=== PATIENT | female | born 1950 | race Caucasian/White ===

== ENCOUNTER 2019-12-17 09:44 | Outpatient (CLI) | payer MEDICARE, SELFPAY ==
[2019-12-17 10:47] LABS: Alanine Aminotransferase 19 U/L (14-59); Albumin Level 3.9 g/dL (3.4-5.0); Alkaline Phosphatase 81 U/L (46-116); Anion Gap 12.8 mmol/L (7-16); Aspartate Amino Transferase 20 U/L (15-37); Bilirubin,Total 0.8 mg/dL (0.00-1.00); Blood Urea Nitrogen 13 mg/dL (7-18); Calcium 9.2 mg/dL (8.5-10.1); Carbon Dioxide 27 mmol/L (21-32); Chloride 95 mmol/L (98-108); Cholesterol 165 mg/dL (0-200); Estimated Glomerular Filt Rate 55; Glucose 96 mg/dL (70-99); HDL Direct 56 mg/dL (40-60); LDL Cholesterol Calculated 97 mg/dL (<130); Osmolality Calculated 270 mOsm/kg (285-295); Potassium 4.8 mmol/L (3.5-5.1); Sodium 130 mmol/L (136-145); Total Protein 7.5 g/dL (6.4-8.2); Triglycerides 58 mg/dL (0-150)
== END 2019-12-17 09:45 | disposition home or self-care (01) ==
LOC: CHSLAB 09:50
PROVIDERS: Visit Provider Internal Medicine Cardiovascular Disease
DX: E78.5 Hyperlipidemia, unspecified (principal)
CPT/HCPCS: 36415; 80053; 80061

== ENCOUNTER 2020-05-28 08:29 | Outpatient (CLI) | payer MEDICARE, SELFPAY ==
--- NOTE | ~2020-05-28 | MMUS_ITS ---
EXAMINATION: MM diagnostic cora BI w juanita, US breast LT complete HISTORY: Diffuse left breast inflammation and edema with warmth. TECHNIQUE: Additional 3-D tomosynthesis images of the breasts were performed and synthetic 2-D images were generated. CAD analysis was submitted and interpreted. High resolution left breast ultrasound w as performed. COMPARISON: None BREAST PARENCHYMAL COMPOSITION: The breasts are extremely dense, which lowers the sensitivity of mamm ography. FINDINGS: MAMMOGRAPHIC FINDINGS: There is no mammographic evidence for malignancy in the right breast. There are benign calcifications . There is a prominent lymph node in the left axilla with loss of normal fatty hilum measuring 1.6 cm . There is skin thickening and asymmetrically increased trabecular pattern compared with the right. ULTRASOUND: Right breast ultrasound: There is skin thickening noted over the nipple. At 1:00, 5 cm from the nipple, there is a 3 mm oval h ypoechoic mass without internal vascularity or significant posterior features. In the left axilla the re is a 2.4 cm enlarged lymph node with persistent fatty hilum. Also in the left axilla is an enlarge d lymph node measuring 1.5 cm with central hilum. At 10:00, 6 cm from the nipple, there is an oval hy poechoic mass measuring 5 mm with internal vascularity and no significant posterior features. IMPRESSION: 1. Constellation of findings is concerning for inflammatory breast carcinoma in the left breast with possible metastatic disease. 2. Consider surgical consultation with punch biopsy. Alternatively, ultrasound-guided biopsy of left axillary lymph nodes and masses at the 1 and 10:00 positions of the left breast may be performed. BI-RADS category 4, suspicious findings. Reviewed, dictated and finalized at location A. IMPRESSION: 1. Constellation of findings is concerning for inflammatory breast carcinoma in the left breast with possible metastatic disease. 2. Consider surgical consultation with punch biopsy. Alternatively, ultrasound- guided biopsy of left axillary lymph nodes and masses at the 1 and 10:00 positi ons of the left breast may be performed. BI-RADS category 4, suspicious findings.
== END 2020-05-28 08:30 | disposition home or self-care (01) ==
PROVIDERS: PCP Family Medicine; Visit Provider Family Medicine
DX: N61.0 Mastitis without abscess (principal)
CPT/HCPCS: 76641; 77062; 77066; G0279

== ENCOUNTER 2020-06-21 11:39 | Emergency (ER) | payer MEDICARE, SELFPAY ==
--- NOTE | ~2020-06-21 | XR_ITS ---
XR chest 2V 06/21/2020 12:08 Indication: Dyspnea. Left breast cancer. Procedure: PA and lateral views of the chest Comparison: 06/05/2018 Findings: Masslike density right upper lobe overlying the second rib anteriorly. There are linear inf iltrates bilaterally, likely atelectasis/scarring. No significant pleural effusion or pneumothorax. M oderate cardiomegaly. Impression: 1: Masslike density right upper lobe, concerning for malignancy. Further evaluation with CT chest rec ommended. 2: Linear bilateral infiltrates, most likely atelectasis/scarring, although developing pneumonia not excluded. Reviewed, dictated and finalized at location A. Impression: 1: Masslike density right upper lobe, concerning for malignancy. Further evalua tion with CT chest recommended. 2: Linear bilateral infiltrates, most likely atelectasis/scarring, although de veloping pneumonia not excluded.
[2020-06-21 11:40] VITALS: BP 118/71; PULSE 95; RESP 18; TEMP 35.9; O2SAT 98
--- NOTE | 2020-06-21 11:42 | ED.SOB ---
HPI - SOB/Dyspnea General Chief Complaint: Shortness of Breath/Dyspnea Stated Complaint: SOB Time Seen by Provider: 06/21/20 11:41 Source: patient, family and RN notes reviewed Mode of arrival: wheelchair Limitations: no limitations History of Present Illness HPI Narrative: Patient recently diagnosed with breast cancer. She is post to be getting has CT scan of her lungs to look for metastases. She began increasingly short of breath over last 3 weeks. This is well documented in previous visits at the doctor that she has try potting has dyspnea. She does have history of COPD and congestive heart failure. MD elicited complaint: shortness of breath Pertinent past history: COPD and congestive heart failure Onset (ago): week(s) (3) Timing: constant Severity: moderate Exacerbating factors: lying flat and exertion Relieving factors: nothing Known history of: COPD and congestive heart failure Associated symptoms: denies other symptoms Treatment prior to arrival: none Related Data Home oxygen amount: none Home Medications Medication Instructions Recorded Confirmed aspirin 81 mg tablet,delayed 81 mg PO DAILY 10/25/19 06/21/20 release Allergies Allergy/AdvReac Type Severity Reaction Status Date / Time pravastatin Allergy Mild myalgia Verified 05/16/20 13:52 iodine Allergy Unknown Hives Verified 05/16/20 13:52 shellfish derived Allergy Unknown Unknown Verified 05/16/20 13:52 Review of Systems Review of Systems: All systems reviewed & are unremarkable except as noted in HPI and below PMFSH Past Medical History Medical History (Updated 06/21/20 @ 15:00 by Max Tobin MD) Breast cancer CHF (congestive heart failure) COPD (chronic obstructive pulmonary disease) ALVARADO (generalized anxiety disorder) HTN (hypertension) Nicotine addiction Family History Family History Mother Family history of congestive heart failure Mother Family history of type 2 diabetes mellitus Social History Social History (Updated 06/21/20 @ 12:54 by Max Tobin MD) Smoking status: Former smoker Tobacco type: cigarettes Alcohol intake: former Substance use: never Exam Const: General: cooperative, well developed, alert, awake and anxious Nutritional Appearance: average body habitus and well nourished Orientation/consciousness: oriented to person, oriented to place and oriented to time Limitations: no limitations HENMT: Head: normal to inspection and normocephalic Ears: hearing grossly normal bilaterally and external ears normal Face and sinus: normal facial exam Eyes: General: appearance normal, both eyes and all related structures Periorbital: periorbital findings normal Eyelids: eyelids normal Conjunctivae: conjunctivae normal Sclera: sclerae normal Pupils: Equal, round and reactive pupils present Neck: Neck: normal visual inspection, full ROM, trachea midline and supple Resp: Effort & Inspection: normal respiratory effort, able to speak in complete sentences, labored, tripod positioning and symmetric chest movement Auscultation: clear to auscultation bilaterally Cardio: Rate: regular rate Rhythm: regular rhythm GI: Inspection: normal to inspection GI Palp: Yes Soft to palpation and No Tenderness to palpation present (GI) Auscultation: normal bowel sounds Back/Spine/Pelvis: Cervical Spine: cervical ROM normal Thoracic/Lumbar Spine: thoraco-lumbar ROM normal Skin: General skin exam: normal color, no rashes or lesions noted and turgor normal Neuro: General: oriented to person, oriented to place, oriented to time and no focal motor deficits Cognition (Neuro): normal cognition Speech: normal speech Motor exam (neuro): 5/5 motor strength present throughout Sensory Exam: normal sensation Extrem: General: full ROM and edema bilateral (2+) Psych: Appearance: grossly normal and well kempt Mental Status: mental status grossly normal Speech and movement: No
[2020-06-21 12:22] VITALS: PULSE 98
[2020-06-21 12:26] LABS: Basophils Absolute Auto 0.03 K/mm3 (0.00-0.10); Basophils Percent Auto 0.4 % (0.0-1.0); Eosinophils Absolute Auto 0.06 K/mm3 (0.02-0.50); Eosinophils Percent Auto 0.9 % (1.0-6.0); Hemoglobin 9.9 g/dL (11.7-13.8); Immature Granulocyte Absolute 0.04 K/mm3 (0.00-0.00); Immature Granulocyte Percent A 0.6 % (0.0-0.0); Lymphocytes Absolute Auto 0.59 K/mm3 (1.10-4.50); Lymphocytes Percent Auto 8.8 % (18.0-42.0); Mean Corpuscular HGB Conc 34.1 g/dL (32.0-36.0); Mean Corpuscular Hemoglobin 30.9 pg (27.0-31.0); Mean Corpuscular Volume 90.6 fL (78.0-102.0); Mean Platelet Volume 8.9 fl (9.2-11.8); Monocytes Absolute Auto 0.85 K/mm3 (0.10-0.90); Monocytes Percent Auto 12.6 % (2.0-11.0); Neutrophils Absolute Auto 5.2 K/mm3 (1.7-7.2); Neutrophils Percent Auto 76.7 % (50.0-70.0); Platelet Count Result 268 K/mm3 (150-420); Red Cell Distribution Width 13.2 % (11.6-14.4); White Blood Count 6.7 K/mm3 (4.8-10.8)
[2020-06-21 12:41] LABS: BNP 110 pg/mL (0-100)
[2020-06-21 12:49] LABS: Lactic Acid Reflex 2.6 mmol/L (0.4-2.0)
--- NOTE | 2020-06-21 12:51 | PC.NURSE ---
1140 upon arrival to er pt requested to stay sitting up in wheelchair. 1230 pt assisted to cot but declines to put feet up. wants to sit up. bedside table in front of pt to lean on as needed. pt thankful for all care given.
[2020-06-21 12:52] LABS: Alanine Aminotransferase 16 U/L (14-59); Albumin Level 3.4 g/dL (3.4-5.0); Alkaline Phosphatase 105 U/L (46-116); Anion Gap 14 mmol/L (8-16); Aspartate Amino Transferase 27 U/L (15-37); Bilirubin,Total 1.1 mg/dL (0.00-1.00); Blood Urea Nitrogen 50 mg/dL (7-18); Calcium 9.5 mg/dL (8.5-10.1); Carbon Dioxide 20 mmol/L (21-32); Chloride 91 mmol/L (98-108); Estimated CRCL calculation 20 ml/min; Estimated Glomerular Filt Rate 21; Glucose 116 mg/dL (70-99); Osmolality Calculated 274 mOsm/kg (285-295); Potassium 5.5 mmol/L (3.5-5.1); Sodium 125 mmol/L (136-145); Total Protein 8.2 g/dL (6.4-8.2)
[2020-06-21 12:55] LABS: CRP 9.2 mg/dL (0.0-0.9); Magnesium 2.3 mg/dL (1.8-2.4)
[2020-06-21] MEDS: HYDROCORTISONE SODIUM SUCCINATE 100 MG/2 ML VIAL 200 MG IV PUSH (13:06)
[2020-06-21] MEDS: ALBUTEROL SULFATE (*SP) INHALER 4 PUFF INHALATION (13:29)
[2020-06-21 13:30] LABS: D Dimer 8.94 mg/L (0.19-0.50)
[2020-06-21] MEDS: LACTATED RINGERS 1,000 ML 999 ML IV CONT (13:31)
[2020-06-21 13:32] VITALS: BP 121/64; PULSE 89; RESP 20; O2SAT 100
--- NOTE | 2020-06-21 13:38 | PC.NURSE ---
call to [facility] for transfer, spoke with elizabeth templesupervisor [facility]. awaiting return call from dr cortez.
[2020-06-21 14:15] LABS: Base Excess ABG -7.7 mmol/L (0-2); HCO3 ABG 15.7 mmol/L (23-29); Oxygen Saturation ABG 98.6 % (95-97); PCO2 ABG 25.4 mmHg (35-45); PO2 ABG 124.1 mmHg (75-85); pH ABG 7.41 (7.35-7.45)
[2020-06-21 14:16] LABS: Site Drawn LEFT RADIAL
[2020-06-21 14:17] LABS: Device NASAL CANNULA; Modified Allen's Test Pass
[2020-06-21] MEDS: ALBUTEROL SULFATE (*SP) INHALER 2 PUFF INHALATION (15:01)
[2020-06-21 15:11] VITALS: BP 98/52; PULSE 88; RESP 20; TEMP 37.1; O2SAT 98
--- NOTE | 2020-06-21 15:13 | PC.NURSE ---
[facility] unavalable for transfer. [facility] called awaiting arrival.
[2020-06-21 15:20] LABS: Reflex Lactic Acid Yes or No Add Lactic
--- NOTE | 2020-06-21 15:35 | PC.NURSE ---
[facility] here, pt loaded to cot. report to DJ. pt alert and feeling better with breathing.
== END 2020-06-21 15:36 | disposition short-term general hospital (02) ==
PROVIDERS: Emergency Provider Emergency Medicine; PCP Family Medicine
DX: R06.00 Dyspnea, unspecified (principal); R79.1 Abnormal coagulation profile
CPT/HCPCS: 36415; 36600; 71046; 80053; 82805; 83605; 83735; 83880; 85025; 85380; 86140; 87040; 96361; 96374; 99285; A9270; J1720; J7120

== ENCOUNTER 2020-06-21 16:18 | Inpatient (IN) | payer MEDICARE, SELFPAY ==
--- NOTE | ~2020-06-21 | XR_ITS ---
EXAMINATION: XR chest 1V portable EXAM DATE: 06/24/2020 02:22 INDICATION: Breast cancer. Right upper lobe mass. Desaturation. TECHNIQUE: Portable AP frontal chest x-ray was obtained. Comparison is made to prior examination from 06/23/2020. FINDINGS: There is a 3 cm right upper lobe masslike density. Small to moderate right pleural effusion with adjacent acute airspace disease could be atelectasis, cancer and/or pneumonia. There is cardiom egaly. No pneumothorax. There are no osseous abnormalities identified. IMPRESSION: 1. Small to moderate right pleural effusion with adjacent moderate nonspecific airspace disease. 2. Right upper lobe mass. 3. Cardiomegaly. Reviewed, dictated and finalized at location A.
--- NOTE | ~2020-06-21 | NM_ITS ---
EXAMINATION: NM pulmonary perfusion DATE: 06/23/2020 14:36 INDICATION: Shortness of breath. TECHNIQUE: 4.7 mCi Tc-99m MAA was administered intravenously for perfusion images. Scintigraphic casa ges of the chest were obtained. COMPARISON: Chest 2 views 06/23/2020 FINDINGS: Perfusion images show large defects in the basilar lower lobes. There are small and moderate sized de fects in the upper lobes and right middle lobe. ] IMPRESSION: 1. Nondiagnostic (intermediate probability for pulmonary embolism). Reviewed, dictated and finalized at location A.
--- NOTE | ~2020-06-21 | CT_ITS ---
EXAMINATION: CT chest abdomen pelvis wo con DATE: 06/23/2020 14:02 INDICATION: Right upper lobe radiographic density. Breast cancer. CHEST CT: There is a large pericardial effusion. There is thoracic aortic, great vessel and coronary artery extensive calcification. No thoracic aorti c aneurysm is evident. Emphysematous changes are noted. There is patchy infiltrate in consolidation in the right lung, prima rily involving the right lower lobe. There is mild dependent atelectasis in both upper lobes and the right lower lobe. There is an approximately 19 x 26 mm opacity in the posterior aspect of the right upper lobe with att enuation of approximately 20 Hounsfield units; its may be a pseudotumor or primary or metastatic pulm onary neoplasm. There is a 2.5 mm right apical pulmonary nodule. There are two approximately 9.5 mm masses in the superior segment of the left lower lobe. ABDOMEN/PELVIS CT: There is thickening, likely edema, of the gallbladder wall. No hepatic, splenic, pancreatic space-occ upying mass lesion or bile duct or pancreatic duct dilatation. Bilateral adrenal mass and/or hypertrophy. The kidneys appear unremarkable on this limited noncontrast examination with streak artifact. No urin charu tract calculus or hydroureteronephrosis is detected. There is a Bowman catheter within the evacuat ed urinary bladder. There is mild to moderate free fluid in the dependent pelvis. There is atherosclerotic calcification of the abdominal aorta and iliac arteries but no aneurysm. No intraperitoneal or retroperitoneal or pelvic mass lesion or adenopathy is evident. No bowel obstruction or intraperitoneal free air. There is edema of the chest and abdominal alicea, breasts. Diffuse osteopenia. No suspicious osteolytic or osteoblastic lesion is noted. IMPRESSION: Multiple lung masses, likely due to metastases Large pericardial effusion Right-sided patchy infiltrate/consolidation, involving primarily the right lower lobe Moderate right pleural effusion, minimal left pleural effusion Emphysema Reviewed, dictated and finalized at Location A. Reviewed, dictated and finalized at location B. IMPRESSION: Multiple lung masses, likely due to metastases Large pericardial effusion Right-sided patchy infiltrate/consolidation, involving primarily the right lowe r lobe Moderate right pleural effusion, minimal left pleural effusion Emphysema
--- NOTE | ~2020-06-21 | XR_ITS ---
EXAMINATION: XR chest 2V DATE: 06/23/2020 13:56 INDICATION: Shortness of breath. TECHNIQUE: Frontal and lateral views of the chest were obtained. COMPARISON: Chest 2 views 06/21/2020, chest CT 06/23/2020 FINDINGS: There are small pleural effusions, right worse than left. There are airspace opacities in r ight mid and lower lung zones. There is a nodule in right upper lobe. No pneumothorax. There is enlar gement of the cardiac silhouette. IMPRESSION: 1. Right upper lobe nodule, consistent with malignancy. 2. Small pleural effusions, right worse than left. 3. Airspace opacities in right mid and lower lung zones, consistent with pneumonia. 4. Enlargement of the cardiac silhouette secondary to pericardial effusion as seen by CT. Reviewed, dictated and finalized at location A. IMPRESSION: 1. Right upper lobe nodule, consistent with malignancy. 2. Small pleural effusions, right worse than left. 3. Airspace opacities in right mid and lower lung zones, consistent with pneumo leanne. 4. Enlargement of the cardiac silhouette secondary to pericardial effusion as s een by CT.
--- NOTE | ~2020-06-21 | US_ITS ---
EXAMINATION:US venous doppler LE BI INDICATION:Elevated d-dimer. Evaluate for deep venous thrombosis. TECHNIQUE: Multiple grayscale, color flow and Doppler images of the right and left lower extremity de ep venous systems were obtained and reviewed. COMPARISON:06/06/2018 FINDINGS: The common femoral, superficial femoral and popliteal veins demonstrate normal respiratory variation, augmentation and compressibility. Color flow is also seen within the posterior tibial, pe roneal, greater saphenous and profunda veins. IMPRESSION: 1: No lower extremity deep venous thrombosis. Reviewed, dictated and finalized at location A.
--- NOTE | 2020-06-21 16:00 | ADMGEN ---
This patient, Debby Lobo, was admitted to 2 Medical Room 259-01. Patient/family oriented to hospital policies and general routines including ID bracelet, bed and alarms, visiting hours, pain management, procedures, bathroom and other care routines, personal items, smoking policy, room service/diet, and visiting hours. Valuables list has been completed. Information on how to activate the Rapid Response Team has been discussed. Patient/Family are encouraged to report perceived risks to care and to ask questions if they do not understand what they are told or what they should do.
[2020-06-21 16:15] VITALS: BP 105/70; PULSE 91; RESP 15; TEMP 36.4; O2SAT 95; BMI 22.6
--- NOTE | 2020-06-21 18:55 | PM.IMHP ---
H&P: HPI History of Present Illness Date/Time: 06/21/20 18:55 Chief complaint: Dyspnea/Metastatic Breast Cancer Narrative: Debby Lobo is a 69 year old female Who has a history of COPD, nonischemic cardiomyopathy, and congestive heart failure. 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 The patient recently was diagnosed with breast cancer to the left breast. She sees Dr. Warner.. She told me that she has already had her 1st visit with him. The patient stated she ready has markings for her radiation. She said that her appetite has not been the best recently. She recently stop smoking and drinking alcohol because it just in taste very good to her. The patient stated that she was supposed to get a COVID test so that she could get a Port-A-Cath placed next week. She has been off of her aspirin for 1 week. The patient went to [facility] because she has been short of breath. It has been getting worse over the last 3 weeks. She takes her routine medications for her cardiomyopathy. She does not recall the last time she had an echo. The patient was placed on oxygen at [facility]. I spoke with Dr. Tobin at [facility]. I also spoke to my collaborative Dr. cortez concerning this case. The patient was not able to get a CT a pulmonary at [facility] because of her increasing creatinine and also she has an allergy to contrast medium. Her chest x-ray was read as masslike density right upper lobe concerning for malignancy. Further evaluation with CT chest recommended. Linear bilateral infiltrates most likely atelectasis scarring although developing pneumonia not excludable. Or creatinine was 2.32 and lactic 2.6. Potassium 5.5 and sodium 125. D-dimer 8.94 date of service 06/21/2020 Review of Systems Review of Systems: All systems reviewed & are unremarkable except as noted in HPI and below Constitutional: Constitutional: Reports as per HPI and Reports no additional constitutional complaints Eyes: Eyes: Reports as per HPI and Reports no additional eye complaints ENT: Reports system reviewed and no additional complaints, except as documented and Reports Normal hearing present Cardiovascular: Cardiovascular: Reports no additional cardiovascular complaints Respiratory: Respiratory: Reports no additional respiratory complaints and Reports no additional respiratory complaints Gastrointestinal: Gastrointestinal: Reports as per HPI and Reports no additional gastrointestinal complaints Musculoskeletal: Musculoskeletal: Reports no additional musculoskeletal complaints Integumentary/Breasts: Skin/Breast: Reports system reviewed and no additional complaints, except as docu and Reports as per HPI Neurologic: Reports system reviewed and no additional complaints, except as documented, Reports as per HPI and Reports Normal hearing present Psychiatric: Psychiatric: Reports no additional psychiatric complaints and Reports as per HPI Endocrine: Endocrine: Reports no additional endocrine complaints Hematologic/Lymphatic: Hematologic/Lymphatic: Reports no additional hematologic/lymphatic complaints Allergic/Immunologic: Allergic/Immunologic: Reports no additional allergic/immunologic complaints FOR[facility]LY [facility] Past Medical History Medical History (Updated 06/21/20 @ 19:22 by Rosalinda Singleton NP) Breast cancer left breast CHF (congestive heart failure) Chronic systolic heart failure COPD (chronic obstructive pulmonary disease) ALVARADO (generalized anxiety disorder) HTN (hypertension) Nicotine addiction Surgical History Surgical History (Updated 06/21/20 @ 19:04 by Rosalinda Singleton NP) H/O breast biopsy left breast S/P tonsillectomy and adenoidectomy Family History Family History (Updated 06/21/20 @ 19:05 by Rosalinda Singleton NP) Mother Congestive heart failure Diabetes mellitus Sibling Congestive heart failure Diabetes mellitus Father Diabetes mellitus Social History Social History (Updated
[2020-06-21 19:57] LABS: Basophils Percent Auto 0.3 % (0.2-1.2); Eosinophils Percent Auto 0.2 % (0-4.4); Hematocrit 29.3 % (37.0-47.0); Immature Granulocyte Absolute 0.07 K/mm3 (0.00-0.031); Immature Granulocyte Percent A 1.1 % (0-0.5); Lymphocytes Absolute Auto 0.34 K/mm3 (0.9-3.2); Lymphocytes Percent Auto 5.3 % (18.3-44.2); Mean Corpuscular HGB Conc 34.1 g/dl (32-36); Mean Corpuscular Hemoglobin 30.6 pg (26-34); Mean Corpuscular Volume 89.6 fl (80-100); Mean Platelet Volume 9.5 fl (7.4-10.4); Monocytes Absolute Auto 0.4 K/mm3 (0.1-0.6); Monocytes Percent Auto 6.7 % (2.6-8.5); Neutrophils Absolute Auto 5.6 K/mm3 (1.3-6.7); Neutrophils Percent Auto 86.4 % (45.5-73.1); Platelet Count Result 273 k/mm3 (150-375); Red Blood Count 3.27 M/mm3 (4.2-5.4); Red Cell Distribution Width 13.3 % (11.5-14.5); White Blood Count 6.4 K/mm3 (4.5-10.0)
[2020-06-21 20:00] VITALS: BP 102/65; PULSE 100; PULSE 94; RESP 20; TEMP 36.1; O2SAT 100
[2020-06-21 20:09] LABS: Magnesium 2.1 mg/dL (1.6-2.3)
[2020-06-21 20:44] VITALS: PULSE 95
[2020-06-21] MEDS: carvediloL 12.5 MG TABLET PO (20:44)
[2020-06-21] MEDS: CITALOPRAM HYDROBROMIDE 10 MG TABLET PO (20:45)
[2020-06-21] MEDS: diphenhydrAMINE HCl CAP 25 MG CAPSULE PO (20:45)
[2020-06-21] MEDS: ACETAMINOPHEN 500 MG TABLET PO (20:45)
[2020-06-21] MEDS: methylPREDNISolone SOD SUCC 125 MG VIAL 60 MG IV PUSH (21:15)
[2020-06-21 21:23] VITALS: PULSE 95; RESP 18; O2SAT 96
[2020-06-21] MEDS: ALBUTEROL SULFATE NEB 2.5 MG/0.5 ML INH INHALATION (21:23)
[2020-06-21 21:32] VITALS: PULSE 94; RESP 20
[2020-06-21] MEDS: ALPRAZolam (*CRX) 0.5 MG TABLET PO (22:18)
[2020-06-22] VITALS (15 sets, daily range): BP systolic 99–136; BP diastolic 59–82; PULSE 70–90; RESP 15–24; TEMP 35.6–36.4; O2SAT 91–98
[2020-06-22] MEDS: methylPREDNISolone SOD SUCC 125 MG VIAL 60 MG IV PUSH ×3 (05:15→21:26)
[2020-06-22 06:01] LABS: Basophils Percent Auto 0.2 % (0.2-1.2); Hematocrit 29.2 % (37.0-47.0); Hemoglobin 9.9 g/dL (12.0-15.0); Immature Granulocyte Absolute 0.05 K/mm3 (0.00-0.031); Immature Granulocyte Percent A 0.9 % (0-0.5); Lymphocytes Absolute Auto 0.51 K/mm3 (0.9-3.2); Lymphocytes Percent Auto 8.7 % (18.3-44.2); Mean Corpuscular HGB Conc 33.9 g/dl (32-36); Mean Corpuscular Hemoglobin 30.1 pg (26-34); Mean Corpuscular Volume 88.8 fl (80-100); Mean Platelet Volume 9.9 fl (7.4-10.4); Monocytes Absolute Auto 0.3 K/mm3 (0.1-0.6); Monocytes Percent Auto 5.5 % (2.6-8.5); Neutrophils Percent Auto 84.7 % (45.5-73.1); Platelet Count Result 258 k/mm3 (150-375); Red Blood Count 3.29 M/mm3 (4.2-5.4); Red Cell Distribution Width 13.2 % (11.5-14.5); White Blood Count 5.8 K/mm3 (4.5-10.0)
[2020-06-22 06:23] LABS: Alanine Aminotransferase 14 U/L (4-35); Albumin Level 3.5 g/dL (3.5-5.1); Alkaline Phosphatase 97 U/L (38-126); Anion Gap 10 mmol/L (8-16); Aspartate Amino Transferase 34 U/L (14-36); Bilirubin,Total 0.6 mg/dL (0.2-1.3); Blood Urea Nitrogen 66 mg/dL (7-17); CRP 6.6 mg/dL (<1.0); Calcium 9.4 mg/dL (8.4-10.2); Carbon Dioxide 21 mmol/L (22-30); Chloride 92 mmol/L (98-107); Estimated CRCL calculation 18 ml/min; Estimated Glomerular Filt Rate 18; Glucose 167 mg/dL (65-105); Magnesium 2.3 mg/dL (1.6-2.3); Potassium 5.6 mmol/L (3.4-5.0); Sodium 123 mmol/L (137-145)
--- NOTE | 2020-06-22 07:33 | ECG_ITS ---
Measurements Intervals [place] Rate: 83 P: 50 PA: 156 QRS: 19 QRSD: 89 T: 205 QT: 408 QTc: 480 Interpretive Statements SINUS RHYTHM VENTRICULAR PREMATURE COMPLEX LOW QRS VOLTAGE IN PRECORDIAL LEADS ST-T WAVE ABNORMALITY IN DIFFUSE LEADS- CONSIDER ISCHEMIA BASELINE WANDER- AVR, AVL, AVF, V1-V6 ABNORMAL ECG Electronically Signed On 06-22-2020 8:52:59 CDT by Harrison Becerril D.O.
--- NOTE | 2020-06-22 08:58 | PM.CNCAR ---
Assessment and Plan Assessment and plan (1) Acute renal failure: Code(s): N17.9 - Acute kidney failure, unspecified Status: Acute Assessment and Plan: Monitor renal function and electrolytes. May need Kayexalate for hyperkalemia. (2) Chronic systolic heart failure: Code(s): I50.22 - Chronic systolic (congestive) heart failure Status: Chronic Assessment and Plan: No acute CHF. She is actually appears on volume depleted side. Start IVF NS at 100 ml/hr x 1 liter to rehydrate and improve hyponatremia and hyperkalemia. Agree to holding Lisinopril due to acute renal failure and hyperkalemia. Agree with echo. Check troponin given abnormal EKG. (3) COPD (chronic obstructive pulmonary disease): Code(s): J44.9 - Chronic obstructive pulmonary disease, unspecified Status: Acute Assessment and Plan: Agree with nebs, steroids. (4) Dyslipidemia: Code(s): E78.5 - Hyperlipidemia, unspecified Status: Acute (5) CAD (coronary artery disease): Code(s): I25.10 - Atherosclerotic heart disease of [place] coronary artery without angina pectoris Status: Chronic (6) HTN (hypertension): Code(s): I10 - Essential (primary) hypertension Status: Chronic Assessment and Plan: Stable. (7) Acute dyspnea: Code(s): R06.00 - Dyspnea, unspecified Status: Inactive Assessment and Plan: Agree with assessing for thromboembolism such as V/Q scan and venous duplex, given very elevated D-Dimer and risk factors such as cancer and more sedentary. Agree needs Covid testing. History of Present Illness History of Present Illness Consult date/time: 06/22/20 08:58 Reasonf for consult: SOB. Patient is a 69 yr old woman who is my regular cardiology patient who presents to ED yesterday for sob. She has a history of NICM due to alcohol abuse, CAD, COPD, dyslipidemia (Pravastatin caused myalgia), hypertension, smoking. Reports that her sob got worse in last 1 week. She also had no appetite in last 1 week. Denies chest pain, edema, orthopnea, PND, palpitations. She was recently diagnosed with left breast cancer, followed by Dr. Warner. She was supposed to have a stevo cath placed this coming week. States she quit drinking alcohol about 2 weeks ago and quit smoking a little more than that. She reports breathing improving after neb treatment and steroids. Previous to this she stated she can walk a few blocks without any problems. CXR shows RUL mass, concerning for malignancy, and linear bilateral infiltrates likely atetactasis/scarring though pneumonia not excluded. EKG shows ST-T wave abnormality- consider ischemia. Cr 2.6/CrCl 18and was 1.01/Cr Cl 55 on 12/17/19. Potassium is 5.6 and sodium 125. D-Dimer 8.9. Lactic acid 2.6. BNP 110. TSH normal. Cardiovascular Procedures Supervisor [employer]:: Cath (Dr. Odell: OM1 with 50-60% stenosis; Diag 1 ostial 30% stenosis.) - 06/01/2018 Echo/MUGA:: Echo (EF 35%, mod global LV systolic dysfunction, mild LVH, mild LAE, mild-mod MR, trace TR.) - 08/23/2018 Echo (EF 18%, mild LVE, severe global systolic dysfunction, mild RVE and hypokinesis, severe MR, mod-severe TR, severe biatrial enlargement, RVSP 40-50 mmHg.) - 05/08/2018 Electrophysiology:: EKG (Sinus rhythm, delayed precordial R/S transition, ST-T wave abnormality- consider ant/inf ischemia.) - 06/06/2018 Reason For Visit: Dyspnea/Metastatic Breast Cancer Review of Systems Review of Systems: All systems reviewed & are unremarkable except as noted in HPI and below Constitutional: Constitutional: Reports as per HPI, Denies chills and Reports fatigue Cardiovascular: Cardiovascular: Reports as per HPI, Denies chest pain and Denies lightheadedness Respiratory: Respiratory: Reports as per HPI and Reports dyspnea Gastrointestinal: Gastrointestinal: Reports as per HPI and Denies abdominal pain Genitourinary: Genitourinary: Reports as per HPI and Denies dysuria Neurologic: Reports as per
[2020-06-22] MEDS: ALPRAZolam (*CRX) 0.5 MG TABLET PO ×2 (09:02→17:05)
[2020-06-22] MEDS: carvediloL 12.5 MG TABLET PO ×2 (09:03→20:16)
[2020-06-22] MEDS: SODIUM CHLORIDE 0.9% IV 1,000 ML 100 ML IV CONT ×2 (09:03→20:15)
[2020-06-22 10:09] LABS: Troponin I 0.075 ng/mL (0.000-0.034)
--- NOTE | 2020-06-22 10:22 | PC.NURSE ---
Per Pt's niece, the MD who was going to do her port was Dr. Flores, who works with Dr. Warner.
[2020-06-22] MEDS: ALBUTEROL SULFATE NEB 2.5 MG/0.5 ML INH INHALATION ×2 (13:14→20:16)
--- NOTE | 2020-06-22 14:16 | PM.IMPN ---
Progress Note: A&P Assessment and Plan (1) D-dimer, elevated: Code(s): R79.89 - Other specified abnormal findings of blood chemistry Status: Inactive Assessment and Plan: D-dimers 8.94. Wait for any anticoagulation until we get the V/Q scan. The D-dimer could be elevated due to the underlying malignancy The patient is scheduled to have a Port-A-Cath placed this next week. under DR messer. and DR Warner in [facility],to start chemotheraphy. (2) Acute dyspnea: Code(s): R06.00 - Dyspnea, unspecified Status: Inactive Assessment and Plan: Oxygen prn scheduled BT. Linear bilateral infiltrates most likely atelectasis scarring although developing pneumonia is not excluded. (3) Acute renal failure: Code(s): N17.9 - Acute kidney failure, unspecified Status: Acute Assessment and Plan: Her creatinine is 2.6 (4) COPD (chronic obstructive pulmonary disease): Code(s): J44.9 - Chronic obstructive pulmonary disease, unspecified Status: Acute Assessment and Plan: I did order Solu-Medrol and nebulizer treatments. (5) Breast cancer: Code(s): C50.919 - Malignant neoplasm of unspecified site of unspecified female breast Status: Chronic Assessment and Plan: Patient has seen Dr. Warner known pt to him (6) Dyslipidemia: Code(s): E78.5 - Hyperlipidemia, unspecified Status: Acute Assessment and Plan: No medicatons seen by Dr Becerril (7) ALVARADO (generalized anxiety disorder): Code(s): F41.1 - Generalized anxiety disorder Status: Chronic Assessment and Plan: Continue with her Xanax. (8) HTN (hypertension): Code(s): I10 - Essential (primary) hypertension Status: Chronic Assessment and Plan: Continue to Hold her lisinopril due to the acute renal failure. (9) Chronic systolic heart failure: Code(s): I50.22 - Chronic systolic (congestive) heart failure Status: Chronic Assessment and Plan: Hold lisinopril, seen by cardiology awaiting Echo Subjective Date/time seen: 06/22/20 14:16 Interval history: Debby Lobo is a 69 year old female Who has a history of COPD, nonischemic cardiomyopathy, and congestive heart failure and Metastatic Breast Cancer. Pt is still mildly SOB awaiting VQ scan, venous doppler of legs and ECHO. The patient was not able to get a CT a pulmonary at [facility] because of her creatinine level and allergy to contrast medium. Cxr here shows Masslike density right upper lobe, concerning for malignancy. Add Linear bilateral infiltrates, most likely atelectasis/scarring, possible Pneumonia. Vq ordered because of high ddimer. Review of Systems Review of Systems: All systems reviewed & are unremarkable except as noted in HPI and below Respiratory: Respiratory: Denies chest congestion, Denies excessive phlegm production, Reports dyspnea and Reports wheezing Exam Const: General: cooperative, healthy appearing and other (Elderly pleasant lady ); No in distress Nutritional Appearance: overweight Orientation/consciousness: oriented to person HENMT: Head: normal to inspection Resp: Auscultation: no rhonchi and wheezes (BL ) Cardio: Rate: regular rate Rhythm: regular rhythm GI: Inspection: normal to inspection GI Palp: No abdominal tenderness, No Guarding due to palpation present (GI) and No Hepatomegaly present Auscultation: normal bowel sounds Neuro: General: oriented to person Objective Data Vital Signs Vital Signs: Vital Signs - 24 hr 06/21/20 16:15 06/21/20 20:00 06/21/20 20:44 Temperature 36.4 C 36.1 C L Pulse Rate 91 100 95 Respiratory Rate 15 20 Blood Pressure 105/70 102/65 Pulse Oximetry 95 100 06/21/20 21:23 06/21/20 21:32 06/22/20 00:00 Temperature 36.4 C Pulse Rate 95 94 83 Respiratory Rate 18 20 18 Blood Pressure 136/82 Pulse Oximetry 96 96 06/22/20 04:00 06/22/20 06:00 06/22/20 08:00 Temp
[2020-06-22] MEDS: SODIUM POLYSTYRENE SULFONONATE 15 GM/60 ML BTL PO (15:17)
[2020-06-22] MEDS: CITALOPRAM HYDROBROMIDE 10 MG TABLET PO (17:02)
[2020-06-22 17:49] LABS: Anion Gap 13 mmol/L (8-16); Blood Urea Nitrogen 75 mg/dL (7-17); Calcium 9.2 mg/dL (8.4-10.2); Carbon Dioxide 21 mmol/L (22-30); Chloride 91 mmol/L (98-107); Estimated CRCL calculation 16 ml/min; Estimated Glomerular Filt Rate 16; Glucose 164 mg/dL (65-105); Potassium 5.5 mmol/L (3.4-5.0); Sodium 125 mmol/L (137-145)
--- NOTE | 2020-06-22 18:46 | PC.NURSE ---
Bladder scan showed 375 mls in bladder
--- NOTE | 2020-06-22 19:08 | WPDONCCN ---
Assessment and Plan Additional Plan Assessment: 1.Inflamm L breast ca 2.SOB --COPD --R/O PE --other 3.CKD 4.Cardiomyopathy--cardiology following 5.Abn CXR Plan: Non contrast CT chest and abdomen VQ scan--> anticoag if (+) Will follow HPI Data of Consult Date/Time: 06/22/20 19:08 Requesting Physician: Gavin Reese MD Primary Care Provider: Rick Washington MD Consult Narrative Narrative: Debby Lobo is a 69 year old female with new left breast cancer (triple negative--probable inflamatory). She was admitted with SOB. D-dimer up; Cr up so CT angio not possible; VQ scan pend. Hx of cardiomopathy thought to be due to ETOH. CXR shows a density in the R lung-- met vs primary vs other PENDING SALE TO [facility] Past Medical History Medical History (Updated 06/22/20 @ 00:00 by Kamran Ball) Breast cancer left breast CHF (congestive heart failure) Chronic systolic heart failure COPD (chronic obstructive pulmonary disease) ALVARADO (generalized anxiety disorder) HTN (hypertension) Nicotine addiction Surgical History Surgical History (Updated 06/21/20 @ 19:04 by Rosalinda Singleton NP) H/O breast biopsy left breast S/P tonsillectomy and adenoidectomy Family History Family History (Updated 06/21/20 @ 19:05 by Rosalinda Singleton NP) Mother Congestive heart failure Diabetes mellitus Sibling Congestive heart failure Diabetes mellitus Father Diabetes mellitus Social History Social History (Updated 06/21/20 @ 19:07 by Rosalinda Singleton NP) Social History: the patient stated that she quit for 3 months back in 2018 but then started back again. The patient stated that she has not smoked for the last week or drink any alcohol last week. The patient desires to be a full code. She nominated her sister's care to be her durable power senior trial attorney for healthcare. She has no children. She is retired from the [employer]. she is single and never been Smoking packs per day: 1 Smoking cigarettes per day: 20.0 Years smoked: 50 Smoking pack-years: 50.00 Smoking status: Former smoker Tobacco type: cigarettes Alcohol intake: current Drinks per week: 3 Substance use: never Substance use type: does not use Gender identity (if verbalized by the patient): Female Spiritual care concerns: No Meds Home Medications and Allergies Home Medications Medication Instructions Recorded Confirmed Type aspirin 81 mg tablet,delayed 81 mg PO DAILY 10/25/19 06/21/20 History release amlodipine 5 mg tablet 5 mg PO DAILY #30 tablet 12/17/19 06/21/20 Rx carvedilol 12.5 mg tablet 12.5 mg PO Q12H #60 tablet 12/17/19 06/21/20 Rx lisinopril 20 mg tablet 20 mg PO DAILY #30 tablet 02/04/20 06/21/20 Rx alprazolam 0.5 mg tablet 0.5 mg PO BID #20 tablet 06/04/20 06/21/20 Rx citalopram 10 mg tablet 10 mg PO DAILY #30 tablet 06/12/20 06/21/20 Rx acetaminophen [Tylenol] 325 mg PO Q6H PRN 06/21/20 06/21/20 History diphenhydramine-acetaminophen 1 tablet PO Q6H PRN 06/21/20 06/21/20 History [Tylenol PM Extra Strength] Allergies Allergy/AdvReac Type Severity Reaction Status Date / Time pravastatin Allergy Mild myalgia Verified 05/16/20 13:52 iodine Allergy Unknown Hives Verified 05/16/20 13:52 shellfish derived Allergy Unknown Unknown Verified 05/16/20 13:52 Vital Signs Vital Signs - 24 hr 06/21/20 20:00 06/21/20 20:44 06/21/20 21:23 Temperature 36.1 C L Pulse Rate 100 95 95 Respiratory Rate 20 18 Blood Pressure 102/65 Pulse Oximetry 100 96 06/21/20 21:32 06/22/20 00:00 06/22/20 04:00 Temperature 36.4 C Pulse Rate 94 83 75 Respiratory Rate 20 18 Blood Pressure 136/82 Pulse Oximetry 96 06/22/20 06:00 06/22/20 08:00 06/22/20 09:03 Temperature 35.7 C L Pulse Rate 81 90 82 Respiratory Rate 18 Blood Pressure 111/59 L Pulse Oximetry 92 06/22/20 10:15 06/22/20 12:00 06/22/20 13:17 Temperature 36.3 C L Pulse Rate 71 73 86 Respiratory Rate 15 24 H Blood P
[2020-06-22] MEDS: diphenhydrAMINE HCl CAP 25 MG CAPSULE PO (20:39)
[2020-06-22] MEDS: ACETAMINOPHEN 500 MG TABLET PO (20:40)
[2020-06-23] VITALS (17 sets, daily range): BP systolic 115–153; BP diastolic 58–86; PULSE 57–102; RESP 14–25; TEMP 36–36.8; O2SAT 90–100; BMI 22.6
--- NOTE | 2020-06-23 | ECHOL_ITS ---
Patient Info Name: Tony Lobo Age: 69 years : 1950 Gender: Female Ht: 66 in Wt: 140 lbs BSA: 1.72 m2 HR: 59 bpm BP: 127 / 73 mmHg Heart Rhythm: Sinus Rhythm Technical Quality: Good Exam Date: 06/23/2020 2:54 PM Exam Location: [facility] Patient Status: Inpatient Admit Date: 06/21/2020 Staff Ordering Physician: Kip Odell MD Power System Electrical Engineer: Angel Helton RDCS Attending Provider: Alisson Chawla PA-C Referring Physician: Cass ISRAEL; Exam Type: CA echo limited Study Info Indications I31.3 - Pericardial effusion (noninflammatory) Limited two-dimensional transthoracic echocardiogram is performed. Apical 4 chamber view and Apical 2 chamber view view(s) were obtained during the procedure. History/Risk Factors Limited for pericardial centesis. Summary 1. There is large circumferential pericardial effusion. 2. Pericardial effusion was tapped to trivial size with ongoing visualization in the apical projection. Left Ventricle Left ventricular chamber dimension is normal. Left ventricular systolic function is mildly reduced, estimated at 45-50%. Right Ventricle Right ventricular chamber dimension is normal. Left Atria Left atrial chamber dimension is mildly enlarged. Right Atria Right atrial chamber dimension is normal. Aortic Valve The aortic valve is not well visualized. Pulmonic Valve The pulmonic valve is not well visualized. Mitral Valve The mitral valve has normal leaflets. Tricuspid Valve The tricuspid valve leaflets are not well visualized. Pericardium/Pleural There is large circumferential pericardial effusion. Pericardial effusion was tapped to trivial size with ongoing visualization in the apical projection. Aorta The aortic root size at the sinus of Valsalva is not well visualized. Report Signatures
--- NOTE | 2020-06-23 | ECHO_ITS ---
Patient Info Name: Loly Lobo Age: 69 years : 1950 Gender: Female Ht: 66 in Wt: 140 lbs BSA: 1.72 m2 HR: 70 bpm BP: 115 / 58 mmHg Heart Rhythm: Sinus Rhythm Technical Quality: Good Exam Date: 06/23/2020 10:34 AM Exam Location: [facility] Patient Status: Inpatient Admit Date: 06/21/2020 Staff Ordering Physician: Rosalinda Singleton NP Clinical Research Associate: Angel Helton RDCS Attending Provider: Alisson Chawla PA-C Exam Type: CA echo doppler color flow Study Info Indications I42.9 - Cardiomyopathy, unspecified Complete two-dimensional, color flow and Doppler transthoracic echocardiogram is performed. History/Risk Factors NICM 2/2 EtOH abuse; large pericardial effusion, HTN, COPD, SOB. Summary 1. Complete two-dimensional, color flow and Doppler transthoracic echocardiogram is performed. 2. Left ventricular chamber dimension is normal. 3. Left ventricular systolic function is moderately reduced, estimated at 40-45%. 4. There is moderately increased left ventricular wall thickness. 5. The left ventricular diastolic function is grade I diastolic dysfunction. 6. E/e' 10 is mildly elevated. 7. Right ventricular systolic function is mild-moderately reduced with TAPSE 1.4 cm. 8. Left atrial chamber dimension is mildly enlarged. 9. There is mild mitral valve regurgitation. 10. Normal inferior vena cava with <50% collapse upon inspiration consistent with elevated right atrial pressure, 10 mmHg. 11. There is large circumferential pericardial effusion. Impending cardiac tamponade with evidence of diastolic right atrial collapse. No significant change in respiratory MV and TV inflow pattern. Left Ventricle E/e' 10 is mildly elevated. Left ventricular chamber dimension is normal. Left ventricular systolic function is moderately reduced, estimated at 40-45%. There is moderately increased left ventricular wall thickness. The left ventricular diastolic function is grade I diastolic dysfunction. Right Ventricle Right ventricular systolic function is mild-moderately reduced with TAPSE 1.4 cm. Right ventricular chamber dimension is normal. Left Atria Left atrial chamber dimension is mildly enlarged. Right Atria Right atrial chamber dimension is normal. Aortic Valve Cannot determine number of aortic valve leaflets. The aortic valve is not well visualized. There is no aortic valve stenosis. There is no aortic valve regurgitation. Pulmonic Valve There is no pulmonic regurgitation. Mitral Valve There is no mitral valve stenosis. There is mild mitral valve regurgitation. Tricuspid Valve There is no tricuspid valve regurgitation. Pericardium/Pleural There is large circumferential pericardial effusion. Impending cardiac tamponade with evidence of diastolic right atrial collapse. No significant change in respiratory MV and TV inflow pattern. Inferior Vena Cava Normal inferior vena cava with <50% collapse upon inspiration consistent with elevated right atrial pressure, 10 mmHg. Aorta The aortic root size at the sinus of Valsalva is normal. Left Ventricular Outflow Tract Name Value Normal LVOT 2D LVOT Diameter 1.8 cm LVOT Doppler
[2020-06-23] MEDS: ALBUTEROL SULFATE NEB 2.5 MG/0.5 ML INH INHALATION ×2 (01:50→20:46)
[2020-06-23] MEDS: methylPREDNISolone SOD SUCC 125 MG VIAL 60 MG IV PUSH ×2 (05:51→16:05)
[2020-06-23] MEDS: SODIUM CHLORIDE 0.9% IV 1,000 ML 100 ML IV CONT (06:20)
[2020-06-23 06:39] LABS: Troponin I 0.085 ng/mL (0.000-0.034)
[2020-06-23 07:23] LABS: Anion Gap 13 mmol/L (8-16); Blood Urea Nitrogen 77 mg/dL (7-17); Calcium 8.5 mg/dL (8.4-10.2); Carbon Dioxide 18 mmol/L (22-30); Chloride 94 mmol/L (98-107); Estimated CRCL calculation 18 ml/min; Estimated Glomerular Filt Rate 18; Glucose 165 mg/dL (65-105); Potassium 5.2 mmol/L (3.4-5.0); Sodium 125 mmol/L (137-145)
--- NOTE | 2020-06-23 08:00 | ECG_ITS ---
Measurements Intervals [place] Rate: 66 P: 16 CA: 165 QRS: 21 QRSD: 90 T: 199 QT: 495 QTc: 519 Interpretive Statements SINUS RHYTHM VENTRICULAR PREMATURE COMPLEX INCOMPLETE RIGHT BUNDLE BRANCH BLOCK T WAVE ABNORMALITY IN DIFFUSE LEADS- CONSIDER ISCHEMIA ABNORMAL ECG Electronically Signed On 06-23-2020 12:59:06 CDT by Harrison Becerril D.O.
--- NOTE | 2020-06-23 08:10 | PM.PNCARD ---
Progress Note: A&P Assessment and Plan (1) Acute renal failure: Code(s): N17.9 - Acute kidney failure, unspecified Status: Acute Assessment and Plan: Monitor renal function and electrolytes. May need Kayexalate for hyperkalemia. (2) Chronic systolic heart failure: Code(s): I50.22 - Chronic systolic (congestive) heart failure Status: Chronic Assessment and Plan: No acute CHF. She is actually appears on volume depleted side. On IVF NS at 100 ml/hr to rehydrate and improve hyponatremia and hyperkalemia. Be cautious for volume overload given history of cardiomyopathy. Agree to holding Lisinopril due to acute renal failure and hyperkalemia. Obtain CXR. Agree with echo. Anormal EKG. Slightly elevated troponins could be due to type II infarct from worsening kidney function, COPD exacerbation. (3) COPD (chronic obstructive pulmonary disease): Code(s): J44.9 - Chronic obstructive pulmonary disease, unspecified Status: Acute Assessment and Plan: Currently wheezing. Agree with nebs, steroids. (4) Dyslipidemia: Code(s): E78.5 - Hyperlipidemia, unspecified Status: Acute Assessment and Plan: Not sure how Pravastatin got discontinued from 6 months ago. Will resume Pravastatin 10 mg daily. (5) CAD (coronary artery disease): Code(s): I25.10 - Atherosclerotic heart disease of [place] coronary artery without angina pectoris Status: Chronic (6) HTN (hypertension): Code(s): I10 - Essential (primary) hypertension Status: Chronic Assessment and Plan: Stable. (7) Acute dyspnea: Code(s): R06.00 - Dyspnea, unspecified Status: Inactive Assessment and Plan: Agree with assessing for thromboembolism such as V/Q scan. Venous duplex is negative for DVT. Very elevated D-Dimer and risk factors such as cancer and more sedentary for thromboembolism. Agree needs Covid testing. Subjective Date/time seen: 06/23/20 08:10 Denies chest pain. Reports sob. Exam Const: General: no acute distress and uncomfortable Other: Tachypneic Neck: Neck: no JVD Carotids: no bruits Resp: Auscultation: no crackles, no rales, no rhonchi, wheezes and diminished lung sounds Cardio: Rate: regular rate Rhythm: regular rhythm Heart sounds: no murmurs GI: Inspection: non-distended Neuro: Speech: normal speech Extrem: Right lower extremity: no edema Left lower extremity: no edema Objective Data Vital Signs Vital Signs: Vital Signs - 24 hr 06/22/20 09:03 06/22/20 10:15 06/22/20 12:00 Temperature 97.3 F L Pulse Rate 82 71 73 Respiratory Rate 15 Blood Pressure 99/68 L Pulse Oximetry 95 06/22/20 13:17 06/22/20 13:27 06/22/20 14:10 Temperature 97.2 F L Pulse Rate 86 76 71 Respiratory Rate 24 H 24 H 16 Blood Pressure 104/67 Pulse Oximetry 91 06/22/20 16:00 06/22/20 20:00 06/22/20 20:16 Temperature 96.0 F L Pulse Rate 70 72 77 Respiratory Rate 20 20 Blood Pressure 112/70 Pulse Oximetry 95 93 06/22/20 20:22 06/22/20 21:31 06/23/20 00:00 Temperature 96.7 F L 97.0 F L Pulse Rate 75 73 64 Respiratory Rate 20 20 16 Blood Pressure 133/70 141/81 H Pulse Oximetry 98 91 06/23/20 01:50 06/23/20 01:55 06/23/20 04:00 Temperature Pulse Rate 68 70 79 Respiratory Rate 20 20 Blood Pressure Pulse Oximetry 06/23/20 05:00 06/23/20 06:32 Temperature 96.8 F L Pulse Rate 81 Respiratory Rate 20 Blood Pressure 153/86 H Pulse Oximetry 92 91 Intake/Output Intake/Output: Intake & Output 06/20/20 06/21/20 06/22/20 06/23/20 23:59 23:59 23:59 23:59 Intake Total 340 1979 1100 Output Total 0 400 Balance 340 1979 700 Meds/Results Medications: Active Medications Generic Name Dose Route Start Last Admin Trade Name Freq PRN Reason Stop Dose Admin Acetaminophen 325 mg 06/21/20 18:50 Tylenol Tablet PO Q6H PRN Pain pain rated 1-3 Acetaminophen 500 m
[2020-06-23] MEDS: carvediloL 12.5 MG TABLET PO ×2 (08:23→20:32)
[2020-06-23] MEDS: ALPRAZolam (*CRX) 0.5 MG TABLET PO (08:23)
[2020-06-23] MEDS: ASPIRIN 81 MG ENTERIC TABLET PO (08:23)
[2020-06-23] MEDS: amLODIPine BESYLATE 5 MG TABLET PO (10:23)
--- NOTE | 2020-06-23 10:39 | PM.IMPN ---
Progress Note: A&P Assessment and Plan (1) Pericardial effusion: Code(s): I31.3 - Pericardial effusion (noninflammatory) Status: Acute Assessment and Plan: Patient with newly diagnosed breast cancer presents with worsening shortness of breath. Echocardiogram today reveals moderately reduced LV systolic function EF 40-45% with large circumferential pericardial effusion impending cardiac tamponade with evidence of diastolic right atrial collapse. She is an established patient of Dr. Jone pisano input. She has additionally been seen by Dr. Odell today who performed pericardiocentesis this afternoon, yielding 500 mL of frankly bloody fluid concerning for malignancy. I have called down to lab this evening and they still have the fluid, we will test it for cell count, Gm stain/culture, cytology. Suspect malignant. (2) Acute respiratory failure with hypoxia: Code(s): J96.01 - Acute respiratory failure with hypoxia Status: Acute Assessment and Plan: Likely multifactorial; possible contributing factors include new pulmonary nodules concerning for metastasis, COPD, large pericardial effusion noted above. She is tolerating 3 L O2 nasal cannula this afternoon. (3) Breast cancer: Qualifiers: Breast location: unspecified site of breast Estrogen receptor status: unspecified Patient sex: female Laterality: unspecified laterality Qualified Code(s): C50.919 - Malignant neoplasm of unspecified site of unspecified female breast Code(s): C50.919 - Malignant neoplasm of unspecified site of unspecified female breast Status: Chronic Assessment and Plan: Newly diagnosed left breast cancer, likely inflammatory. Further recommendations per Dr. Alana pisano input. Per the records available, she was going to get a Port-A-Cath placed soon. (4) Pulmonary nodules: Code(s): R91.8 - Other nonspecific abnormal finding of lung field Status: Acute Assessment and Plan: Shows right upper lobe and left lower lobe pulmonary nodules concerning for metastasis. (5) Acute renal failure: Qualifiers: Acute renal failure type: unspecified Qualified Code(s): N17.9 - Acute kidney failure, unspecified Code(s): N17.9 - Acute kidney failure, unspecified Status: Acute Assessment and Plan: Cr 2.6 today, was previously normal back in November 2019. She has not been eating or drinking well secondary to poor appetite, suspect may be contributing to acute renal failure. Hold lisinopril. Continue gentle IV hydration for now monitor fluid status closely. Monitor renal function and urine output. (6) COPD (chronic obstructive pulmonary disease): Qualifiers: COPD type: unspecified COPD Qualified Code(s): J44.9 - Chronic obstructive pulmonary disease, unspecified Code(s): J44.9 - Chronic obstructive pulmonary disease, unspecified Status: Acute Assessment and Plan: She has been treated with IV Solu-Medrol, will wean today. Continue albuterol nebs and supplemental O2. Encourage incentive spirometer. (7) HTN (hypertension): Qualifiers: Hypertension type: essential hypertension Qualified Code(s): I10 - Essential (primary) hypertension Code(s): I10 - Essential (primary) hypertension Status: Chronic Assessment and Plan: BP stable maintained on her home carvedilol. Lisinopril is held due to acute renal failure. Monitor BP and adjust treatment as needed. (8) Chronic systolic heart failure: Code(s): I50.22 - Chronic systolic (congestive) heart failure Status: Chronic Assessment and P
--- NOTE | 2020-06-23 11:48 | PCRCNOTE ---
PAST RESPIRATORY TIME WINDOW TO RECEIVE TREATMENT
--- NOTE | 2020-06-23 13:49 | PM.CNCAR ---
Assessment and Plan Additional Plan 69-year-old lady with shortness of breath and unfortunate recent diagnosis of metastatic breast cancer. She likely has pericardial involvement and echocardiographic and physical exam stigmata of hemodynamic significance. We will arrange for percutaneous pericardial drainage of this fluid this afternoon. Fluid will be sent for routine lab data, cultures and cytology. Kip Odell MD [facility] History of Present Illness History of Present Illness Consult date/time: date of service:06/23/20 13:49 Reason For Visit: Dyspnea/Metastatic Breast Cancer Narrative: This is a 69-year-old woman who I am asked to see this afternoon at the request of Dr. Becerril to perform a pericardiocentesis of a pericardial effusion that is suspected to be related to metastatic breast cancer. The patient apparently was found to have a breast malignancy recently and is seeing 1 of the local oncologist who is planning on placing a chemotherapy port. The patient has not yet started treatment of her disease. She entered the hospital with shortness of breath which began about a week ago and is rapidly getting worse in the last few days. An echocardiogram was done this morning and interpreted by Dr. Becerril is showing a large circumferential pericardial effusion with findings compatible with impending tamponade. When I entered the room to see her the patient was asleep in the bed with the head of the bed elevated about 30?. She says she feels short of breath with modest activity and reports no other symptoms. Had a detailed discussion with the patient about the concept of malignant pericardial effusions and tapping of this both for diagnostic and therapeutic purposes. After discussion of the procedure and the attendant risks she would like to proceed. Review of Systems Constitutional: Constitutional: Reports fatigue Eyes: Eyes: Reports no additional eye complaints ENT: Reports system reviewed and no additional complaints, except as documented Cardiovascular: Cardiovascular: Reports as per HPI Respiratory: Respiratory: Reports dyspnea Gastrointestinal: Gastrointestinal: Reports no additional gastrointestinal complaints Musculoskeletal: Musculoskeletal: Reports no additional musculoskeletal complaints Integumentary/Breasts: Skin/Breast: Reports system reviewed and no additional complaints, except as docu Neurologic: Reports system reviewed and no additional complaints, except as documented Psychiatric: Psychiatric: Reports no additional psychiatric complaints Endocrine: Endocrine: Reports no additional endocrine complaints Hematologic/Lymphatic: Hematologic/Lymphatic: Reports no additional hematologic/lymphatic complaints [facility] Past Medical History Medical History (Updated 06/22/20 @ 00:00 by Background Daemon) Breast cancer left breast CHF (congestive heart failure) Chronic systolic heart failure COPD (chronic obstructive pulmonary disease) ALVARADO (generalized anxiety disorder) HTN (hypertension) Nicotine addiction Surgical History Surgical History (Updated 06/21/20 @ 19:04 by Rosalinda Singleton NP) H/O breast biopsy left breast S/P tonsillectomy and adenoidectomy Family History Family History (Updated 06/21/20 @ 19:05 by Rosalinda Singleton NP) Mother Congestive heart failure Diabetes mellitus Sibling Congestive heart failure Diabetes mellitus Father Diabetes mellitus Social History Social History (Updated 06/21/20 @ 19:07 by Rosalinda Singleton NP) Social History: the patient stated that she quit for 3 months back in 2018 but then started back again. The patient stated that she has not smoked for the last week or drink any alcohol last week. The patient desires to be a full code. She nominated her sister's care to be her durable power trademark attorney for healthcare. She has no children. She is retired from the [employer]. she is single and never been Smoking packs per day: 1
--- NOTE | 2020-06-23 13:58 | WPDMODSED ---
Moderate Sedation Note-Pt Data Patient Data Diagnosis: pericardial effusion with stigmata of impending tamponade on echo Present Complaint: this is an unfortunate 69-year-old lady with a history of a nonischemic cardiomyopathy diagnosed in the past who presents with shortness of breath. A recent diagnosis of carcinoma of the left breast was made and she is found to have a large circumferential pericardial effusion this morning. We are asked by her consulting noninvasive blockman to perform a pericardiocentesis Procedure to be performed/Plan: pericardiocentesis Allergies Allergy/AdvReac Type Severity Reaction Status Date / Time pravastatin Allergy Mild myalgia Verified 05/16/20 13:52 iodine Allergy Unknown Hives Verified 05/16/20 13:52 shellfish derived Allergy Unknown Unknown Verified 05/16/20 13:52 Home Medications Medication Instructions Recorded Confirmed Type aspirin 81 mg tablet,delayed 81 mg PO DAILY 10/25/19 06/21/20 History release amlodipine 5 mg tablet 5 mg PO DAILY #30 tablet 12/17/19 06/23/20 Rx carvedilol 12.5 mg tablet 12.5 mg PO Q12H #60 tablet 12/17/19 06/21/20 Rx lisinopril 20 mg tablet 20 mg PO DAILY #30 tablet 02/04/20 06/21/20 Rx alprazolam 0.5 mg tablet 0.5 mg PO BID #20 tablet 06/04/20 06/21/20 Rx citalopram 10 mg tablet 10 mg PO DAILY #30 tablet 06/12/20 06/21/20 Rx acetaminophen [Tylenol] 325 mg PO Q6H PRN 06/21/20 06/21/20 History diphenhydramine-acetaminophen 1 tablet PO Q6H PRN 06/21/20 06/21/20 History [Tylenol PM Extra Strength] Current Medications: Active Medications Acetaminophen (Tylenol Tablet) 325 mg PO Q6H PRN PRN Reason: Pain pain rated 1-3 Albuterol (Albuterol Sulf Neb 2.5mg/0.5ml) 2.5 mg INHALATION Q6HRT [facility] Last Admin: 06/23/20 11:48 Dose: Not Given Documented by: Alprazolam (Xanax) 0.5 mg PO BID [facility] Last Admin: 06/23/20 08:23 Dose: 0.5 mg Documented by: Amlodipine Besylate (Norvasc) 5 mg PO DAILY [facility] Last Admin: 06/23/20 10:23 Dose: 5 mg Documented by: Aspirin (Aspirin Ec) 81 mg PO DAILY [facility] Last Admin: 06/23/20 08:23 Dose: 81 mg Documented by: Carvedilol (Coreg) 12.5 mg PO Q12HR [facility] Last Admin: 06/23/20 08:23 Dose: 12.5 mg Documented by: Citalopram Hydrobromide (Celexa) 10 mg PO QPM [facility] Last Admin: 06/22/20 17:02 Dose: 10 mg Documented by: Diphenhydramine HCl (Benadryl Cap) 25 mg PO HS PRN PRN Reason: PAIN RATED 1-3 Last Admin: 06/22/20 20:39 Dose: 25 mg Documented by: Sodium Chloride (Normal Saline Iv) 1,000 mls @ 70 mls/hr IV CONT .[id number] [facility] Last Infusion: 06/23/20 09:00 Dose: 0 mls/hr Documented by: Methylprednisolone Sodium Succinate (Solu-Medrol) 60 mg IV PUSH Q8HR [facility] Last Admin: 06/23/20 05:51 Dose: 60 mg Documented by: Nicotine (Nicoderm Cq 14 Mg) 1 patch TRANSDERM QAM [facility] Last Admin: 06/23/20 08:23 Dose: Not Given Documented by: Ondansetron HCl (Zofran Inj) 4 mg IV PUSH Q6H PRN PRN Reason: Nausea And Vomiting Sedation/Anesthesia: No previous sedation/anesthesia problems (including family history). [facility] Past Medical History Medical History (Updated 06/22/20 @ 00:00 by Kamran Ball) Breast cancer left breast CHF (congestive heart failure) Chronic systolic heart failure COPD (chronic obstructive pulmonary disease) ALVARADO (generalized anxiety disorder) HTN (hypertension) Nicotine addiction Surgical History Surgical History (Updated 06/21/20 @ 19:04 by Rosalinda Singleton NP) H/O breast biopsy left breast S/P tonsillectomy and adenoidectomy Family History Family History (Updated 06/21/20 @ 19:05 by Rosalinda Singleton NP) Mother Congestive heart failure Diabetes mellitus Sibling Congestive heart failure Diabetes mellitus Father Diabetes mellitus Social History Social History (Updated 06/21/20 @ 19:07 by Rosalinda Singleton NP) Social History: the patient stated that she quit for 3 months back in 2018 but then started back again. The patient stated that she has not smoked
--- NOTE | 2020-06-23 15:29 | P.PCNCC_ITS ---
Cardiac Cath Procedure Note Date of procedure:: 06/23/20 Performing physician:: Kip Odell MD Indication:: Symptomatic pericardial effusion, suspected malignancy Brief clinical history:: this is a 69-year-old woman who has a history of recently diagnosed metastatic breast cancer. She presented to the hospital with shortness of breath and has echocardiographic evidence of a hemodynamically significant pericardial effusion. Procedure Procedure performed:: Pericardiocentesis Sedation/Medication given:: no sedation given Access site:: subxiphoid Estimated blood loss:: no blood loss Procedure note:: patient was brought to the cardiac catheterization lab in the supine position the subxiphoid area was prepped and draped in a sterile fashion. The echocardiogram cloth spreader screen printing was in the bundle tier and labeler obtaining images from the apical projection where the infusion was large and readily visible. 1% lidocaine was used to anesthetize the puncture site. Following this the pericardiocentesis tray was used in the access needle was used to puncture the pericardium. The guidewire was advanced into the pericardium under fluoroscopic visualization and pericardial location was confirmed. Following this I injected agitated saline into the this was confirmed present by the echocardiogram. The pigtail catheter was then advanced into the pericardium and the pericardial effusion was drained using the 60 cc syringe and the collection bag. The repeated aspiration strange a total of 500 cc of bloody pericardial fluid. The on echocardiographic visualization the infusion decreased to minimal at the conclusion of the procedure. Following this the pigtail catheter was withdrawn and the patient was taken back to room 259 fluid was sent for specific gravity LDH cultures and cytology. Findings:: Pericardial effusion drained as detailed above Conclusion:: successful drainage of moderate to large pericardial effusion draining 500 cc of frankly bloody fluid highly suspected to be malignant in this lady with metastatic breast cancer. Cytology results forthcoming per pathology Kip Odell MD [facility]
[2020-06-23] MEDS: SODIUM CHLORIDE 0.9% IV 1,000 ML 70 ML IV CONT (16:07)
[2020-06-23 19:03] LABS: Pericardial fluid source Pericardial fluid
[2020-06-23 19:04] LABS: Appearance Pericardial Fluid Bloody (Clear); Color Pericardial Fluid Red (Colorless); Lymphocytes Pericardial Fluid 9 %; Macrophages Pericardial Fluid 4 %; Mesothelial Cells Pericardial 25 %; Monocytes Pericardial Fluid 20 %; Neutrophils Pericardial Fluid 42 % (0-25)
[2020-06-24] VITALS (16 sets, daily range): BP systolic 96–124; BP diastolic 54–69; PULSE 63–89; RESP 15–20; TEMP 36.1–36.4; O2SAT 16–99
--- NOTE | 2020-06-24 | ECHOL_ITS ---
Patient Info Name: Tony Lobo Age: 69 years : 1950 Gender: Female HR: 74 bpm BP: 111 / 63 mmHg Technical Quality: Good Exam Date: 06/24/2020 8:36 AM Exam Location: [facility] Patient Status: Inpatient Admit Date: 06/21/2020 Staff Ordering Physician: Harrison Becerril DO Chief Controller Tower: Tru Fonseca RDCS, RT Attending Provider: Scotty Aguilar MD Referring Physician: Jone MAJOR; Exam Type: CA echo limited Study Info Indications I31.3 - Pericardial effusion (noninflammatory) Limited two-dimensional transthoracic echocardiogram is performed. Summary 1. Limited echocardiogram to assess for pericardial effusion s/p pericardiocentesis. 2. There is moderate circumferential pericardial effusion. Pericardium/Pleural There is moderate circumferential pericardial effusion. Limited echocardiogram to assess for pericardial effusion s/p pericardiocentesis. Report Signatures
[2020-06-24] MEDS: SODIUM CHLORIDE 0.9% IV 1,000 ML 70 ML IV CONT (01:11)
[2020-06-24] MEDS: ALBUTEROL SULFATE NEB 2.5 MG/0.5 ML INH INHALATION ×2 (02:08→09:01)
--- NOTE | 2020-06-24 02:13 | ECG_ITS ---
Measurements Intervals [place] Rate: 75 P: 48 [place]: 183 QRS: 17 QRSD: 94 T: 214 QT: 449 QTc: 502 Interpretive Statements SINUS RHYTHM VENTRICULAR PREMATURE COMPLEX INCOMPLETE RIGHT BUNDLE BRANCH BLOCK T WAVE ABNORMALITY IN DIFFUSE LEADS- CONSIDER ISCHEMIA BASELINE WANDER- III, AVL, AVF ABNORMAL ECG Electronically Signed On 06-24-2020 7:53:52 CDT by Harrison Becerril D.O.
[2020-06-24 02:31] LABS: Alveolar/Arterial O2 Gradient 448.6 mmHg; Base Excess ABG -6.1 mEq/l (+/-2.0); Carboxyhemoglobin 0.3 % THb (0-2.0); Fractional Inspired Oxygen 80 %; HCO3 ABG 21.2 mEq/l (22.0-26.0); Methemoglobin ABG 0.3 %THb (0-1.5); Oxygen Content ABG 12.7 %vol (16.0-22.0); Oxygen Saturation ABG 90.7 % (95.0-100.0); Oxyhemoglobin 88.9 % THb (90.0-100.0); PCO2 ABG 50.2 mmHg (35.0-45.0); PO2 ABG 69.1 mmHg (80.0-100.0); PO2 FiO2 Ratio Arterial Blood 0.86 %; Reduced Hemoglobin 10.5 %THb (0-5.0); Total Hemoglobin 10.1 g/dL (12.0-18.0); pH ABG 7.243 (7.350-7.450)
[2020-06-24 02:32] LABS: Site Drawn LEFT RADIAL
[2020-06-24 02:33] LABS: Device SIMPLE MASK
--- NOTE | 2020-06-24 02:34 | PCRCNOTE ---
WHILE OBTAINING VITAL SIGNS, I NOTICED THAT PT LOOKED DUSKY. SPO2 77% ON 3LPM NC. I INCREASED O2 TO 6LPM NC AND WALKED ACROSS [place] TO GRAB AN OXYGEN MASK AND CALLED NURSES STATION TO ASK FOR HELP. I PLACED OXYGEN MASK ON PT WHILE RAPID RESPONSE WAS CALLED. ALBUTEROL TREATMENT WAS THEN STARTED.
--- NOTE | 2020-06-24 02:40 | PM.EVENT ---
Event Note Event Note Event Note: Rapid Response Note Called to evaluate this 69-year-old who is currently being treated for pericardial effusion, respiratory failure, and breast cancer via rapid response. On arrival to bedside nursing staff alerted me that the patient was found to be saturating in the mid 70s on 3 L of oxygen. The patient was placed on 6 L of oxygen which has improved her oxygenation. Currently the patient denies any significant shortness of breath, chest pain, palpitations, or other symptoms. On exam the patient has diminished breath sounds and very wheezy. There are faint basal crackles auscultated bilaterally. The patient was given an albuterol nebulized treatment. EKG was obtained and was virtually unchanged. Vital signs are stable at this point and pulse ox saturations have improved to 92% on a simple mask. Chest x-ray was obtained which demonstrated increased pulmonary edema bilaterally when compared with the last chest x-ray. ABG demonstrated acute hypercapnic respiratory failure. The patient will be transferred to IMU. We will initiate BiPAP. Obtain another ABG in 1 hour. We will also administer Lasix 40 mg once. Nursing staff has called Cardiology to update them on the patient's current clinical condition. I will continue to monitor closely overnight. Total critical care time spent exceeded 32 minutes.
--- NOTE | 2020-06-24 03:34 | PC.NURSE ---
This patient, Tony Lobo, was transferred to [[id number] ] on 06/24/20 at 0330. Personal belongings sent with patient. Belongings list checked and signed with receiving [isidoro ]. Report given to [ isidoro]. Appropriate documentation sent with patient.
--- NOTE | 2020-06-24 03:36 | PC.NURSE ---
Respiratory went in to give treatments to the patient she then notified me the patient had desaturated to 71%. Patient was alert but sluggish. O2 was increased from 3L to 6L. Rapid response was called.
[2020-06-24] MEDS: FUROSEMIDE INJ 40 MG/4 ML VIAL IV PUSH (03:41)
--- NOTE | 2020-06-24 03:48 | PC.NURSE ---
transferred approx [id number] 06/24/2020 report from Tori KOVACS
--- NOTE | 2020-06-24 03:52 | PC.NURSE ---
jennifer sunny's emergency contact ([phone]) was called and informed of Sunny's rapid response call. Jennifer said her sister nicole ([phone]) also needed to be notified. i called nicole but there was no response. i was also unable to leave a voicemail for her to call back because it has not been set up yet. i called jennifer back to inform her to have nicole call the hosptial or give her an update on sunny herself.
--- NOTE | 2020-06-24 04:55 | PC.NURSE ---
Spoke with authorization specialist for [facility]. Updated Dr. Roberts that pt was a rapid over to us so they were aware of change in status.
[2020-06-24 06:18] LABS: Basophils Percent Auto 0.1 % (0.2-1.2); Hematocrit 26.7 % (37.0-47.0); Hemoglobin 8.7 g/dL (12.0-15.0); Immature Granulocyte Absolute 0.15 K/mm3 (0.00-0.031); Lymphocytes Absolute Auto 0.19 K/mm3 (0.9-3.2); Lymphocytes Percent Auto 2.5 % (18.3-44.2); Mean Corpuscular HGB Conc 32.6 g/dl (32-36); Mean Corpuscular Hemoglobin 30.2 pg (26-34); Mean Corpuscular Volume 92.7 fl (80-100); Mean Platelet Volume 10.3 fl (7.4-10.4); Monocytes Absolute Auto 0.7 K/mm3 (0.1-0.6); Monocytes Percent Auto 8.8 % (2.6-8.5); Neutrophils Absolute Auto 6.5 K/mm3 (1.3-6.7); Neutrophils Percent Auto 86.6 % (45.5-73.1); Platelet Count Result 197 k/mm3 (150-375); Red Blood Count 2.88 M/mm3 (4.2-5.4); Red Cell Distribution Width 13.6 % (11.5-14.5); White Blood Count 7.5 K/mm3 (4.5-10.0)
[2020-06-24 06:18] LABS: Alveolar/Arterial O2 Gradient 150.7 mmHg; Base Excess ABG -5.1 mEq/l (+/-2.0); Fractional Inspired Oxygen 40 %; Oxygen Content ABG 12.8 %vol (16.0-22.0); Oxygen Saturation ABG 95.4 % (95.0-100.0); Oxyhemoglobin 93.7 % THb (90.0-100.0); PCO2 ABG 43.6 mmHg (35.0-45.0); PO2 ABG 84.4 mmHg (80.0-100.0); PO2 FiO2 Ratio Arterial Blood 2.11 %; Total Hemoglobin 9.6 g/dL (12.0-18.0); pH ABG 7.301 (7.350-7.450)
[2020-06-24 06:19] LABS: Device NON-INVASIVE VENT; Modified Allen's Test Pass; Site Drawn LEFT RADIAL
[2020-06-24 06:20] LABS: Non-Invasive Expiratory Pressure 6 CMH2O; Non-Invasive Inspiratory Pressure 12 CMH2O; Non-Invasive Vent Rate 10 /MIN
[2020-06-24 06:36] LABS: Alanine Aminotransferase 17 U/L (4-35); Albumin Level 3.1 g/dL (3.5-5.1); Alkaline Phosphatase 86 U/L (38-126); Anion Gap 9 mmol/L (8-16); Aspartate Amino Transferase 24 U/L (14-36); Bilirubin,Total 0.4 mg/dL (0.2-1.3); Blood Urea Nitrogen 70 mg/dL (7-17); Calcium 8.6 mg/dL (8.4-10.2); Carbon Dioxide 23 mmol/L (22-30); Chloride 97 mmol/L (98-107); Estimated CRCL calculation 26 ml/min; Estimated Glomerular Filt Rate 28; Glucose 128 mg/dL (65-105); Magnesium 2.3 mg/dL (1.6-2.3); Phosphorus 6.7 mg/dL (2.5-4.5); Potassium 4.6 mmol/L (3.4-5.0); Sodium 129 mmol/L (137-145)
--- NOTE | 2020-06-24 07:57 | PM.PNCARD ---
Progress Note: A&P Assessment and Plan (1) Acute renal failure: Qualifiers: Acute renal failure type: unspecified Qualified Code(s): N17.9 - Acute kidney failure, unspecified Code(s): N17.9 - Acute kidney failure, unspecified Status: Acute Assessment and Plan: Monitor renal function and electrolytes. (2) Chronic systolic heart failure: Code(s): I50.22 - Chronic systolic (congestive) heart failure Status: Chronic Assessment and Plan: No acute CHF. Her echo on 06/23/20 shows EF improved to 40-45%, large pericardial effusion with impending tamponade. She was volume depleted but has received IVF for last few days. Be cautious for volume overload given history of cardiomyopathy. Agree to holding Lisinopril due to acute renal failure and hyperkalemia. Anormal EKG. Slightly elevated troponins could be due to type II infarct from worsening kidney function, COPD exacerbation. (3) COPD (chronic obstructive pulmonary disease): Qualifiers: COPD type: unspecified COPD Qualified Code(s): J44.9 - Chronic obstructive pulmonary disease, unspecified Code(s): J44.9 - Chronic obstructive pulmonary disease, unspecified Status: Acute Assessment and Plan: Agree with nebs, steroids. (4) Dyslipidemia: Code(s): E78.5 - Hyperlipidemia, unspecified Status: Acute Assessment and Plan: Not sure how Pravastatin got discontinued from 6 months ago. Will resume Pravastatin 10 mg daily. (5) CAD (coronary artery disease): Code(s): I25.10 - Atherosclerotic heart disease of [place] coronary artery without angina pectoris Status: Chronic (6) HTN (hypertension): Qualifiers: Hypertension type: essential hypertension Qualified Code(s): I10 - Essential (primary) hypertension Code(s): I10 - Essential (primary) hypertension Status: Chronic Assessment and Plan: Stable. (7) Acute dyspnea: Code(s): R06.00 - Dyspnea, unspecified Status: Inactive Assessment and Plan: Could be related to COPD exacerbation and volume overload from IVF and prior large pericardial effusion. Venous duplex is negative for DVT. V/Q scan is non-diagnostic. Very elevated D-Dimer and risk factors such as cancer and more sedentary for thromboembolism. Stop IVF. Received Lasix 40 mg IV x 1 last night. Give Lasix 20 mg IV x 1 now as CXR shows mild-mod right pleural effusion. (8) Pericardial effusion: Code(s): I31.3 - Pericardial effusion (noninflammatory) Status: Acute Assessment and Plan: S/P pericardiocentesis with Dr. Odell on 06/23/20 removing 500 ml of bloody fluid. Cytology and fluid analysis pending. Obtain limited echo today. Discussed with patient about potential transfer to outside facility with cardiothoracic surgery capability for pericardial window procedure to prevent recurrence of pericardial effusion. She wants to discuss with her family about which facility to go. Subjective Date/time seen: 06/24/20 07:57 Patient desaturated last night. Currently on BiPAP, looks comfortable. Not sob. Denies chest pain. Exam Const: General: comfortable and no acute distress Neck: Neck: no JVD Carotids: no bruits Resp: Auscultation: no crackles, no rales, no rhonchi, no wheezes and diminished lung sounds Cardio: Rate: regular rate Rhythm: regular rhythm Heart sounds: no murmurs GI: Inspection: non-distended Neuro: Speech: normal speech Extrem: Right lower extremity: no edema Left lower extremity: no edema Objective Data Vital Signs Vital Signs: Vital Signs - 24 hr 06/23/20 08:00 06/23/20 09:00 06/23/20 12:00 Temperature 98 F 97.9 F Pulse Rate 78 102 H 67 Respiratory Rate 20 25 H Blood Pressure 115/58 L 116/68 Pulse Oximetry 100 92 06/23/20 16:00 06/23/20 16:15 06/23/20 16:30 Temperature 98.1 F 98.2 F 97.8 F Pulse Rate 77 81 65 Respiratory Rate 15 15 18 Blood Pressure 116/70 1
[2020-06-24] MEDS: ASPIRIN 81 MG ENTERIC TABLET PO (09:06)
[2020-06-24] MEDS: FUROSEMIDE INJ 40 MG/4 ML VIAL 20 MG IV PUSH (09:06)
[2020-06-24] MEDS: amLODIPine BESYLATE 5 MG TABLET PO (09:06)
[2020-06-24] MEDS: methylPREDNISolone SOD SUCC 125 MG VIAL 60 MG IV PUSH (09:07)
[2020-06-24] MEDS: carvediloL 12.5 MG TABLET PO (09:07)
--- NOTE | 2020-06-24 13:28 | P.TS_ITS ---
Transfer Discharge Sum: Prov Provider Date of admission: 06/21/20 16:18 Primary care physician: Rick Washington MD Admitting clinician: Gavin Reese MD Consults: 06/21/20 Consult to Physician Routine Comment: Spoke with Dr Becerril @ 1909 (,[place]) Consulting Provider: Harrison Becerril bingo caller/MD group to consult: dr becerril Reason for consultation: chf Has provider been notified: Yes Consult to Physician Routine Comment: Spoke with Alex from Dr Gerber exchange @ 1914 Consulting Provider: Raz Warner bingo caller/MD group to consult: dr warner Reason for consultation: breast cancer Has provider been notified: Yes Attending physician on discharge: Scotty Aguilar Discharging clinician: Scotty Aguilar Anticipated date of transfer: 06/24/20 Receiving physician/facility: [facility] DS: Admitting Diagnosis Admitting Diagnosis Admitting Diagnosis: Dyspnea/Metastatic Breast Cancer DS: Discharge Diagnosis Discharge Diagnosis (1) Pericardial effusion: Code(s): I31.3 - Pericardial effusion (noninflammatory) Status: Acute Assessment and Plan: * Patient with newly diagnosed breast cancer presents with worsening shortness of breath. * Echocardiogram performed 06/23 revealed moderately reduced LV systolic function EF 40-45% with large circumferential pericardial effusion with impending cardiac tamponade with evidence of diastolic right atrial collapse. * Cardiology consulted and was seen by Dr. Odell today who performed pericardiocentesis on 06/23 yielding 500 mL of frankly bloody fluid concerning for malignancy. * BCx NGTD. Pericardial culture also negative. * Rapid response called land conservation specialist of 06/24 and stablized * Repeat Echo 06/24 showing moderate circumferential pericardial effusion. * Dr Becerril has arranged for transfer to tertiary care center for further management (2) Acute respiratory failure with hypoxia: Code(s): J96.01 - Acute respiratory failure with hypoxia Status: Acute Assessment and Plan: * Patient was stable on 2L O2 up until the land conservation specialist of 06/24 * ABG on admission(06/21) showing 7.41/25/124 on 2L * CT Chest/Abd/Pelvis 06/23 showing multiple lung masses, likely due to metastases; Large pericardial effusion; Right-sided patchy infiltrate/consolidation, involving primarily the right lower lobe; Moderate right pleural effusion, minimal left pleural effusion; and Emphysema * Pulmonary perfusion scan 06/23 showing intermediate probability for pulmonary embolism * Likely multifactorial; possible contributing factors include new pulmonary nodules concerning for metastasis, COPD, large pericardial effusion noted above. * After the rapid response, she was requiring up to 12l O2. (3) Breast cancer: Qualifiers: Breast location: unspecified site of breast Estrogen receptor status: unspecified Laterality: unspecified laterality Patient sex: female Qualified Code(s): C50.919 - Malignant neoplasm of unspecified site of unspecified female breast Code(s): C50.919 - Malignant neoplasm of unspecified site of unspecified female breast Status: Chronic Assessment and Plan: * Newly diagnosed left breast cancer, likely inflammatory. (4) Pulmonary nodules: Code(s): R91.8 - Other nonspecific abnormal finding of lung field Status: Acute Assessment and Plan:
--- NOTE | 2020-06-24 13:28 | PM.TDS ---
Transfer Discharge Sum: Prov Provider Date of admission: 06/21/20 16:18 Primary care physician: Rick Washington MD Admitting clinician: Gvain Reese MD Consults: 06/21/20 Consult to Physician Routine Comment: Spoke with Dr Becerril @ 1909 (,[place]) Consulting Provider: Harrison Becerril call center associate/MD group to consult: dr becerril Reason for consultation: chf Has provider been notified: Yes Consult to Physician Routine Comment: Spoke with Alex from Dr Gerber exchange @ 1914 Consulting Provider: Raz Warner call center associate/MD group to consult: dr warner Reason for consultation: breast cancer Has provider been notified: Yes Attending physician on discharge: Scotty Aguilar Discharging clinician: Scotty Aguilar Anticipated date of transfer: 06/24/20 Receiving physician/facility: [facility] DS: Admitting Diagnosis Admitting Diagnosis Admitting Diagnosis: Dyspnea/Metastatic Breast Cancer DS: Discharge Diagnosis Discharge Diagnosis (1) Pericardial effusion: Code(s): I31.3 - Pericardial effusion (noninflammatory) Status: Acute Assessment and Plan: Patient with newly diagnosed breast cancer presents with worsening shortness of breath. Echocardiogram performed 06/23 revealed moderately reduced LV systolic function EF 40-45% with large circumferential pericardial effusion with impending cardiac tamponade with evidence of diastolic right atrial collapse. Cardiology consulted and was seen by Dr. Odell today who performed pericardiocentesis on 06/23 yielding 500 mL of frankly bloody fluid concerning for malignancy. BCx NGTD. Pericardial culture also negative. Rapid response called powder worker tnt of 06/24 and stablized Repeat Echo 06/24 showing moderate circumferential pericardial effusion. Dr Becerril has arranged for transfer to tertiary care center for further management (2) Acute respiratory failure with hypoxia: Code(s): J96.01 - Acute respiratory failure with hypoxia Status: Acute Assessment and Plan: Patient was stable on 2L O2 up until the powder worker tnt of 06/24 ABG on admission(06/21) showing 7.41/25/[address] Chest/Abd/Pelvis 06/23 showing multiple lung masses, likely due to metastases; Large pericardial effusion; Right-sided patchy infiltrate/consolidation, involving primarily the right lower lobe; Moderate right pleural effusion, minimal left pleural effusion; and Emphysema Pulmonary perfusion scan 06/23 showing intermediate probability for pulmonary embolism Likely multifactorial; possible contributing factors include new pulmonary nodules concerning for metastasis, COPD, large pericardial effusion noted above. After the rapid response, she was requiring up to 12l O2. (3) Breast cancer: Qualifiers: Breast location: unspecified site of breast Estrogen receptor status: unspecified Laterality: unspecified laterality Patient sex: female Qualified Code(s): C50.919 - Malignant neoplasm of unspecified site of unspecified female breast Code(s): C50.919 - Malignant neoplasm of unspecified site of unspecified female breast Status: Chronic Assessment and Plan: Newly diagnosed left breast cancer, likely inflammatory. (4) Pulmonary nodules: Code(s): R91.8 - Other nonspecific abnormal finding of lung field Status: Acute Assessment and Plan: CXR shows right upper lobe and left lower lobe pulmonary nodules concerning for metastasis. CT scan result as above (5) Acute renal failure: Qualifiers: Acute renal failure type: unspecified Qualified Code(s): N17.9 - Acute kidney failure, unspecified Code(s): N17.9 - Acute kidney failure, unspecified Status: Acute Assessment and Plan: Cr 2.6 today, was previously
--- NOTE | 2020-07-17 08:28 | PC.NURSE ---
Pericardial effusion cx shows no growth.
== END 2020-06-24 14:33 | disposition short-term general hospital (02) | DRG 314 ==
LOC: ANH2MED 06-23 15:30 → ANHIMU 06-24 07:06 → ANH2MED 06-25 14:47 → ANHIMU 06-25 14:47
PROVIDERS: Family Medicine; Internal Medicine Cardiovascular Disease; Physician Assistant; Specialist; Admitting Provider Internal Medicine; PCP Family Medicine; Visit Provider Nurse Practitioner
PROC: 0W9D3ZX Drainage of Pericardial Cavity, Percutaneous Approach, Diagnostic (ICD-10-PCS; CPT 33016; principal; 2020-06-23 15:00)
DX: I31.3 Pericardial effusion (noninflammatory) (principal); J96.01 Acute respiratory failure with hypoxia; J96.02 Acute respiratory failure with hypercapnia; N17.9 Acute kidney failure, unspecified; I50.22 Chronic systolic (congestive) heart failure; I42.8 Other cardiomyopathies; E87.1 Hypo-osmolality and hyponatremia; C78.01 Secondary malignant neoplasm of right lung; C50.912 Malignant neoplasm of unspecified site of left female breast; J43.9 Emphysema, unspecified; I11.0 Hypertensive heart disease with heart failure; F41.1 Generalized anxiety disorder; E78.5 Hyperlipidemia, unspecified; E87.5 Hyperkalemia; I25.10 Atherosclerotic heart disease of native coronary artery without angina pectoris; F10.10 Alcohol abuse, uncomplicated; Z87.891 Personal history of nicotine dependence
CPT/HCPCS: 33016; 36415; 36600; 71045; 71046; 71250; 74176; 78580; 80048; 80053; 82375; 82805; 83050; 83735; 84100; 84443; 84484; 85025; 86140; 87015; 87070; 87075; 87116; 87205; 87206; 88104; 88108; 88305; 89051; 93005; 93306; 93308; 93970; 94002; 94640; 94660; A9270; A9540; J1644; J1940; J2930; J7030; J7040